=== PATIENT | female | born 1990 | race Asian ===

== ENCOUNTER 2018-10-05 08:47 | Emergency (ER) | payer OTHER ==
[~2018-10-05] VITALS: Ht 147.3 cm; Wt 49.0 kg
[~2018-10-05 08:47] MED LIST: CEPH-443 PO; HYDR-4011 PO; IBUP800T48 PO; METH750T93 PO; NAPR-985 PO; SULF1TAB31 PO
[2018-10-05 08:48] VITALS: BP 98/73; PULSE 108; RESP 20; Ht 147.3 cm; Wt 49.0 kg
--- NOTE | 2018-10-05 10:43 | ERD ---
ER Documentation Chief Complaint Chief Complaint LEFT FACIAL SWELLING HPI 28-year-old female presenting with swelling to her left face x1 day. She is noted some pain within the left nostril and has taken Tylenol with no alleviation of symptoms. She is never had this before and denies any fevers. She denies dental pain. She needs trouble swallowing. No pain with eye movement. Denies medical problems. NKDA. Surgical history denies. Up-to-date on vaccinations ROS All systems reviewed and are negative except as per history of present illness. Medications Home Meds Active Scripts Naproxen* (Naprosyn*) 500 Mg Tablet, 500 MG PO BID PRN for PAIN AND/OR INFLAMMATION, #30 TAB Prov:DOT MCGREGOR PA-C 10/05/18 Cephalexin* (Keflex*) 500 Mg Capsule, 500 MG PO QID for 7 Days, CAP Prov:DOT MCGREGOR PA-C 10/05/18 Sulfamethoxazole/Trimethoprim* (Bactrim Ds* Tablet) 1 Each Tablet, 1 TAB PO BID, #14 TAB Prov:DOT MCGREGOR PA-C 10/05/18 Hydrocodone/Acetaminophen ([place] 5-325 Tablet) 1 Each Tablet, 1 EACH PO every 4- 6 hours, #14 TAB Prov:EMMANUELLE MEZASTSYED Suero. DO 11/02/15 Methocarbamol* (Robaxin*) 750 Mg Tablet, 750 MG PO TID, #30 TAB Prov:LEKKOSAPOSTOLOS A. DO 11/02/15 Ibuprofen* (Motrin*) 800 Mg Tab, 800 MG PO Q6H PRN for PAIN AND OR ELEVATED TEMP, #30 TAB Prov:LEROBERTO CARLOSOSEMMANUELLESTOLOS A. DO 11/02/15 Allergies Allergies: Coded Allergies: No Known Allergy (Unverified , 03/16/13) PMhx/Soc Medical and Surgical Hx: pt denies Medical Hx, pt denies Surgical Hx Hx Alcohol Use: No Hx Substance Use: No Hx Tobacco Use: No Smoking Status: Never smoker FmHx Family History: No diabetes, No coronary disease, No other Physical Exam Vitals Vital Signs Date Temp Pulse Resp B/P (MAP) Pulse Ox O2 O2 Flow FiO2 Time Delivery Rate 10/05/18 99.0 108 20 98/73 (81) 99 08:48 Physical Exam GENERAL: The patient is well-appearing, well-nourished, in no acute distress HEENT: Atraumatic. Conjunctivae are pink. Pupils equal, round, and reactive to light. There is no scleral icterus. Tympanic membranes clear bilaterally. Oropharynx clear. Poor dentition noted throughout but no pain with biting of tongue depressor. CHEST: Clear to auscultation bilaterally. There are no rales, wheezes or rhonchi. HEART: Regular rate and rhythm. No murmurs, clicks, rubs or gallops. No S3 or S4. SKIN: No erythema noted to the left cheek. Mild induration when palpating the left cheek. Procedures/MDM MDM: 28-year-old female presenting with swelling to the left side of her face. She has findings consistent with facial abscess. I have low suspicion for mariah orbital or deep tracking abscess. Patient is treated with supportive medications and told to return in 2 days for wound check. I will discharge with antibiotics and recommend warm compresses. Patient is discharged with strict ER precautions and told to follow-up with primary care. All questions answered at discharge Departure Diagnosis: Primary Impression: Facial abscess Condition: Stable Patient Instructions: Abscess, Antiobiotic Treatment Only Referrals: [facility] ([facility] walk in clinic) Additional Instructions: FOLLOW UP WITH YOUR PRIMARY CARE PHYSICIAN TOMORROW.Return to this facility if you are not improving as expected. DOT MCGREGOR PA-C Oct 05, 2018 10:43
== END 2018-10-05 09:31 | disposition home or self-care (01) ==
LOC: FTE 08:47
DX: L02.01 Cutaneous abscess of face (principal)
CPT/HCPCS: 99283